=== PATIENT | female | born 1955 | race Two or more races ===

== ENCOUNTER 2021-11-19 14:05 | Emergency (ER) | payer OTHER, BC ==
[~2021-11-19] VITALS: Ht 167.6 cm; Wt 73.9 kg
[2021-11-19] MEDS ORDERED: SIMVASTATIN20 MG PO (14:12)
[2021-11-19] MEDS ORDERED: TIROSINT75 MCG PO (14:12)
[2021-11-19] MEDS ORDERED: ENBREL50 MG/1 M2 SUBCUTANEO (14:13)
[2021-11-19] MEDS ORDERED: XOLAIR75 MG/0.5 SQ (14:14)
[2021-11-19] MEDS ORDERED: METHOTREXATE2.5 MG PO (14:15)
[2021-11-19] MEDS ORDERED: XIIDRA1 EACH OP (14:19)
[2021-11-19] MEDS ORDERED: BACTRIM 400-801 EACH PO (17:28)
== END 2021-11-19 18:47 | disposition home or self-care (01) ==
LOC: ER 14:05
DX: N30.00 Acute cystitis without hematuria (principal); R35.0 Frequency of micturition; R30.0 Dysuria

== ENCOUNTER 2022-05-22 14:19 | Outpatient (CLI) | payer OTHER ==
[~2022-05-22 14:19] MED LIST: AMOX-CLAV 875-1 EACH PO; BACTRIM 400-801 EACH PO; ENBREL50 MG/1 M2 SUBCUTANEO; METHOTREXATE2.5 MG PO; OMEGA-31000 MG; SIMVASTATIN20 MG PO; TIROSINT75 MCG PO; XIIDRA1 EACH OP; XOLAIR75 MG/0.5 SQ
== END 2022-05-22 14:27 | disposition home or self-care (01) ==
LOC: RAD 14:19
PROVIDERS: ATTEND Internal Medicine Allergy & Immunology
DX: J45.901 Unspecified asthma with (acute) exacerbation (principal); J98.8 Other specified respiratory disorders

== ENCOUNTER 2023-07-02 13:09 | Outpatient (CLI) | payer OTHER | END 2023-07-02 13:16 | disposition home or self-care (01) | LOC: RAD 13:09 | PROVIDERS: ATTEND Internal Medicine Allergy & Immunology | DX: J45.901 Unspecified asthma with (acute) exacerbation (principal); J98.8 Other specified respiratory disorders ==

== ENCOUNTER 2023-10-01 09:55 | Outpatient (CLI) | payer OTHER | END 2023-10-01 16:03 | disposition home or self-care (01) | LOC: SONOGRAMA 09:55 | DX: N39.0 Urinary tract infection, site not specified (principal); R35.0 Frequency of micturition ==

== ENCOUNTER 2024-06-27 13:51 | Emergency (ER) | payer OTHER ==
[~2024-06-27] VITALS: Ht 165.1 cm; Wt 68.0 kg
[2024-06-27 14:01] VITALS: BP 107/67; O2SAT 96
[2024-06-27] MEDS ORDERED: BENZONATATE 200 MG CAPSULE PO ONE (16:30)
[2024-06-27] MEDS ORDERED: MAGNESIUM SULFATE IN WATER 2 GM/50 ML PIGGYBAG IV ONE (16:30)
[2024-06-27] MEDS ORDERED: IPRATROPIUM BROMIDE 0.5 MG/2.5 ML AMPUL.NEB IH ONE ×2 (16:30→16:32)
[2024-06-27] MEDS ORDERED: METHYLPREDNISOLONE SOD SUCC 125 MG VIAL IV ONE (16:30)
[2024-06-27] MEDS ORDERED: LEVALBUTEROL HCL 1.25 MG/3 ML SOLUTION IH SCH (16:30)
[2024-06-27] MEDS ORDERED: LEVALBUTEROL HCL 1.25 MG/3 ML SOLUTION IH ONE (16:32)
[2024-06-27 16:44] LABS: ABG PH 7.417 (7.35-7.45); ABG PO2 67.1 mmHg (80-100); ABG pCO2 44.4 mmHg (35-45); BASE EXCESS 2.9 mmol/l; SaO2 93.5 %; Tco2 29.3 mmol/l; allen test SATISFACTORY; o2 21 %; puncture site RADIAL LEFT
[2024-06-27] MEDS ORDERED: METHYLPREDNISOLONE SOD SUCC 40 MG VIAL ONE (16:45)
[2024-06-27] MEDS ORDERED: MAGNESIUM SULFATE 50% 1,000 MG/2 ML VIAL ONE (16:45)
[2024-06-27 17:21] LABS: HEMATOCRIT 40.2 % (36.0-45.00); HEMOGLOBIN 13.6 g/dL (12.0-15.00); MEAN CELL VOLUME 89.2 fL (80.00-100.00); MEAN CORPUSCULAR HEMOGLOBIN 30.2 pg (27.00-32.0); MEAN CORPUSCULAR HGB CONC 33.8 g/dl (32.0-36.0); PLATELET COUNT 169 K/uL (150-450); RED BLOOD COUNT 4.51 M/uL (4.00-6.00); RED CELL DISTRIBUTION WIDTH 14.7 % (11.5-14.5)
[2024-06-27] MEDS ORDERED: IPRATROPIUM/ALBUTEROL SULFATE 3 ML AMPUL.NEB IH ONE ×2 (18:30→19:29)
[2024-06-27] MEDS ORDERED: SINGULAIR10 MG PO (19:53)
[2024-06-27] MEDS ORDERED: ZITHROMAX500 MG PO (19:53)
[2024-06-27] MEDS ORDERED: LEVALBUTER0.63 MG/3 IH (19:53)
[2024-06-27] MEDS ORDERED: BENZONATATE200 M1 PO (19:53)
[2024-06-27] MEDS ORDERED: PEPCID AC20 MG PO (19:53)
== END 2024-06-27 20:05 | disposition home or self-care (01) ==
LOC: ER 13:53
PROVIDERS: General Practice
DX: J45.909 Unspecified asthma, uncomplicated (principal); Z20.822 Contact with and (suspected) exposure to COVID-19
CPT/HCPCS: 36415; 71046; 82803; 94640; 99283; J3475; J3490

== ENCOUNTER 2024-11-02 16:18 | Emergency (ER) | payer OTHER ==
[~2024-11-02] VITALS: Ht 165.1 cm; Wt 68.0 kg
[~2024-11-02 16:18] MED LIST changes: +BENZONATATE200 M1 PO; +LEVALBUTER0.63 MG/3 IH; +PEPCID AC20 MG PO; +SINGULAIR10 MG PO; +ZITHROMAX500 MG PO
[2024-11-02] MEDS ORDERED: KETOROLAC TROMETHAMINE 60 MG VIAL IM ONE ×2 (18:00→18:41)
== END 2024-11-02 20:59 | disposition home or self-care (01) ==
LOC: ER 16:18
DX: M25.562 Pain in left knee (principal); M85.88 Other specified disorders of bone density and structure, other site